=== PATIENT | female | born 1995 ===

== ENCOUNTER → 2021-08-04 | Day surgery (SDC) | payer OTHER ==
[~2021-08-04] VITALS: Ht 157.5 cm; Wt 67.1 kg
[~2021-08-04] MED LIST: BENADRYL25 MG PO; CENTRUM ADULTS1 EACH PO; CLARITIN10 MG PO; FABRAZYME35 MG IV; MAG-OXIDE 400M400 MG PO; NORETHINDRONE0.35 MG PO; OXCARBAZEPINE600 MG PO; SODIUM BICARBO650 MG PO; TOPIRAMATE200 MG PO; TOPIRAMATE50 MG PO; ZYRTEC10 M3 PO
[2021-08-04 08:16] LABS: HCG (URINE) SCREEN NEGATIVE (NEGATIVE)
== END | disposition home or self-care (01) ==
LOC: FAS 07:45
PROVIDERS: Oral & Maxillofacial Surgery
DX: K01.1 Impacted teeth (principal); G40.909 Epilepsy, unspecified, not intractable, without status epilepticus; E75.21 Fabry (-Anderson) disease; Z88.0 Allergy status to penicillin
CPT/HCPCS: D7140; D7240; 84703; 93005; J1100; J1642; J1885; J2250; J2405; J2704; J3010; J7120